=== PATIENT | male | born 1995 | race Two or more races ===

== ENCOUNTER 2020-03-19 19:19 | Emergency (ER) | payer SELFPAY ==
[~2020-03-19] VITALS: Ht 177.8 cm; Wt 89.4 kg
[2020-03-19 19:21] VITALS: BP 123/48
[2020-03-19] MEDS ORDERED: NEOSPORIN OINT. PKT 1 PACKET ONE (19:59)
--- NOTE | 2020-03-19 20:09 | NUR ---
Fingers soaking in very warm water with betadine. Supplies at bedside for i/d.
[2020-03-19] MEDS ORDERED: LIDOCAINE-MPF 1%, 5ML ONE (20:42)
[2020-03-19] MEDS ORDERED: IBUPROFEN 200 MG TABLET ONE (20:45)
--- NOTE | 2020-03-19 20:53 | NUR ---
Abx ointment applied, fingers dressed. Work note provided. Pt given rx and instruct. To return to ER if worse or concerns.
[2020-03-19] MEDS ORDERED: IBUPROFEN 800 MG TABLET PO ONE (21:00)
[2020-03-19] MEDS ORDERED: LIDOCAINE 1%, 10ML INFIL ONE (21:00)
== END 2020-03-19 21:01 | disposition home or self-care (01) ==
LOC: ED 20:00
DX: L03.012 Cellulitis of left finger (principal); L03.011 Cellulitis of right finger; M79.645 Pain in left finger(s); M79.644 Pain in right finger(s); F10.10 Alcohol abuse, uncomplicated; F12.10 Cannabis abuse, uncomplicated; F17.200 Nicotine dependence, unspecified, uncomplicated; Z72.9 Problem related to lifestyle, unspecified; Y90.0 Blood alcohol level of less than 20 mg/100 ml
CPT/HCPCS: 10061; 99284